=== PATIENT | male | born 1945 | race Caucasian/White ===

== ENCOUNTER 2021-04-07 05:12 | Inpatient (IN) | payer MEDICARE, BC ==
[~2021-04-07] VITALS: Ht 182.9 cm; Wt 90.7 kg
[2021-04-07 05:32] LABS: HEMOGLOBIN 11.9 gm/dl (14.0-17.5); RED BLOOD COUNT 4.07 M/UL (4.20-5.50); WHITE BLOOD COUNT 9.9 K/UL (4.5-11.0)
[2021-04-07] MEDS ORDERED: SINGULAIR10 MG PO (16:13)
[2021-04-07] MEDS ORDERED: LASIX20 MG PO (16:14)
[2021-04-07] MEDS ORDERED: CARVEDILOL25 MG PO (16:14)
[2021-04-07] MEDS ORDERED: TELMISARTAN80 MG PO (16:14)
[2021-04-07] MEDS ORDERED: TRAMADOL HCL50 MG PO (16:15)
[2021-04-07 16:58] LABS: BORDETELLA PARAPERTUSSIS Not Detected (Not Detectd); BORDETELLA PERTUSSIS Not Detected (Not Detectd); CHLAMYDIA PNEUMONIAE Not Detected (Not Detectd); CORONAVIRUS HKU1 Not Detected (Not Detectd); CORONAVIRUS NL63 Not Detected (Not Detectd); CORONAVIRUS OC43 Not Detected (Not Detectd); CORONOAVIRUS 229E Not Detected (Not Detectd); HUMAN METAPNEUMOVIRUS Not Detected (Not Detectd); HUMAN RHINOVIRUS/ENTEROVIRUS Not Detected (Not Detectd); INFLUENZA A Not Detected (Not Detectd); INFLUENZA B Not Detected (Not Detectd); MYCOPLASMA PNEUMONIAE Not Detected (Not Detectd); PARAINFLUENZA VIRUS 1 Not Detected (Not Detectd); PARAINFLUENZA VIRUS 2 Not Detected (Not Detectd); PARAINFLUENZA VIRUS 3 Not Detected (Not Detectd); PARAINFLUENZA VIRUS 4 Not Detected (Not Detectd); RESPIRATORY SYNCYTIAL VIRUS Not Detected (Not Detectd)
[2021-04-07 18:39] LABS: SARS-CoV-2 NOT DETECTED (Not Detectd)
--- NOTE | 2021-04-08 | NUR ---
DR SCHNEIDER AT BEDSIDE . PATIENT MORE RESPONSIVE . YELLING AND CURSING FOR STAFF TO RUB HIS BACK AND TO HELP HIM OUT OF BED. ORDER FOR HEAD CT RECEIVED.
[2021-04-08 05:30] LABS: HEMOGLOBIN 12.7 gm/dl (14.0-17.5); RED BLOOD COUNT 4.4 M/UL (4.20-5.50); WHITE BLOOD COUNT 10.2 K/UL (4.5-11.0)
--- NOTE | 2021-04-08 06:28 | NUR ---
SEE PAPER CHART FOR Q15M VS.
--- NOTE | 2021-04-08 21:16 | NUR ---
pt requesting tylenol for body wide arthritis pain . rates pain 3/10 on pain scale. tylenol 650 mg po administered.
--- NOTE | 2021-04-08 23:45 | NUR ---
CALL TO ROOM BY . STATES SOMETHING IS WRONG WITH PATIENT. UPON ENTERING ROOM PATIENT WAS FOUND MOANING AND WRITHING IN BED. DID NOT RESPOND TO QUESTIONS OR FOLLOW COMMANDS.VITAL SIGNS BP 120/57 , HR 67, RR 29,SATS 95% DR SCHNEIDER NOTIFIED , ORDERS RECEIVED.
[2021-04-09 00:04] LABS: HEMOGLOBIN 12.8 gm/dl (14.0-17.5); RED BLOOD COUNT 4.4 M/UL (4.20-5.50); WHITE BLOOD COUNT 12.7 K/UL (4.5-11.0)
--- NOTE | 2021-04-09 00:20 | NUR ---
TRANSPORTED VIA BED TO CT SCAN FOR HEAD CT ORDERED WITHOUT COMPLICATION.
--- NOTE | 2021-04-09 01:42 | NUR ---
PATIENT STATES HES FEELING BETTER. RESPONDS APPROPRIATELY AND FEELS LIKE THE PREVIOUSLY ADMINISTERED TYLENOL IS THE CAUSE FOR HIS CONDITION CHANGE. PHARMACY NOTIFIED. TYLENOL WILL BE LISTED POSSIBLE ALLERGY PER PHARMACIST.
--- NOTE | 2021-04-09 05:50 | NUR ---
c/o shoulder and back pain "from laying in bed" assisted up to chair.
[2021-04-09 16:10] LABS: ATYPICAL PANCA <1:20 titer (Neg:<1:20); CYTOPLASMIC (C-ANCA) <1:20 titer (Neg:<1:20); PERINUCLEAR (P-ANCA) <1:20 titer (Neg:<1:20)
[2021-04-10 03:15] LABS: BUN/CREATININE RATIO 39 (0-10)
[2021-04-10 07:11] LABS: ANTI-DNASE B STREP ANTIBODIES <78 U/mL (0-120)
[2021-04-11 02:32] LABS: HEMOGLOBIN 13.2 gm/dl (14.0-17.5); RED BLOOD COUNT 4.57 M/UL (4.20-5.50); WHITE BLOOD COUNT 12.4 K/UL (4.5-11.0)
[2021-04-11 02:57] LABS: BUN/CREATININE RATIO 39 (0-10)
[2021-04-11 15:05] LABS: BODY FLUID SOURCE PLEURAL
[2021-04-12 03:12] LABS: BUN/CREATININE RATIO 39 (0-10)
[2021-04-12 18:56] LABS: LDH, BODY FLUID 106 U/L
[2021-04-12 19:57] LABS: TOTAL PROTEIN, BODY FLUID 3.4 gm/dL
[2021-04-13] MEDS ORDERED: CORTEF 10MG TAB10 MG PO (10:48)
[2021-04-13] MEDS ORDERED: CORTEF20 MG PO (10:48)
[2021-04-13] MEDS ORDERED: FUROSEMIDE40 MG PO (10:48)
[2021-04-13] MEDS ORDERED: MIDODRINE HCL2.5 MG PO (10:48)
[2021-04-13] MEDS ORDERED: SODIUM CHLORIDE1 G1 PO (10:58)
== END 2021-04-13 14:37 | disposition home or self-care (01) | DRG 853 ==
LOC: ER1 05:12 → CDU 10:36 → CCU 10:36 → PROG CARE 10:36 → CCU 15:16 → PROG CARE 04-09 15:40
PROVIDERS: Emergency Medicine; Internal Medicine; Physician Assistant; ADMIT Internal Medicine
PROC: 0W9B3ZZ Drainage of Left Pleural Cavity, Percutaneous Approach (ICD-10-PCS; principal; 2021-04-11)
PROC: 07B23ZX Excision of Left Neck Lymphatic, Percutaneous Approach, Diagnostic (ICD-10-PCS; 2021-04-11)
DX: A41.9 Sepsis, unspecified organism (principal); R65.21 Severe sepsis with septic shock; J96.01 Acute respiratory failure with hypoxia; J15.9 Unspecified bacterial pneumonia; R57.8 Other shock; C77.0 Secondary and unspecified malignant neoplasm of lymph nodes of head, face and neck; E22.2 Syndrome of inappropriate secretion of antidiuretic hormone; N17.9 Acute kidney failure, unspecified; J90 Pleural effusion, not elsewhere classified; R18.8 Other ascites; I10 Essential (primary) hypertension; R59.1 Generalized enlarged lymph nodes; R63.4 Abnormal weight loss; K21.9 Gastro-esophageal reflux disease without esophagitis; G89.29 Other chronic pain; Z20.822 Contact with and (suspected) exposure to COVID-19; M54.9 Dorsalgia, unspecified; E88.09 Other disorders of plasma-protein metabolism, not elsewhere classified; Z79.82 Long term (current) use of aspirin
CPT/HCPCS: ECHO; 0240U; 36415; 36600; 70450; 70486; 71045; 71250; 76705; 76942; 80048; 80053; 80202; 81001; 82378; 82436; 82533; 82550; 82553; 82570; 82803; 82962; 83605; 83615; 83735; 83874; 83880; 84100; 84133; 84153; 84156; 84157; 84300; 84439; 84443; 84484; 85025; 85610; 85652; 85730; 86140; 86256; 86431; 87040; 87070; 87205; 87633; 88341; 88342; 89051; 93005; 93306; 94640; 94664; 94760; 96365; 96367; 96375; 99285; C1729; J0834; J1335; J1650; J1720; J1940; J2250; J2405; J2543; J2920; J3370; J7030; J7070